=== PATIENT | male | born 1980 | race Caucasian/White ===

== ENCOUNTER 2018-03-30 13:56 | Emergency (ER) | payer OTHER ==
[~2018-03-30] VITALS: Ht 177.8 cm; Wt 97.5 kg
[2018-03-30] MEDS ORDERED: AUGMENTIN 875-1 EACH PO (14:31)
[2018-03-30 15:06] VITALS: BP 110/74
== END 2018-03-30 15:08 | disposition home or self-care (01) ==
LOC: ER 13:56
DX: S81.851A Open bite, right lower leg, initial encounter (principal); W54.0XXA Bitten by dog, initial encounter; Y93.64 Activity, baseball; Y92.89 Other specified places as the place of occurrence of the external cause; Y99.8 Other external cause status